=== PATIENT | male | born 1990 ===

== ENCOUNTER 2018-06-16 11:24 | Emergency (ER) | payer OTHER ==
[2018-06-16 11:25] VITALS: BMI 30.7
[2018-06-16 11:44] VITALS: BP 153/83; PULSE 58; RESP 18; TEMP 98.7; O2SAT 99
--- NOTE | 2018-06-16 12:50 | ED PDOC ---
HPI: Male Pain Time Seen by Provider: 06/16/18 12:21 Chief Complaint (Nursing): Male Genitourinary Chief Complaint (Provider): Genital Rash History Per: Patient, [facility] (Chaka OliveiraAntisqueak Chalker #[id number]) History/Exam Limitations: no limitations Onset/Duration Of Symptoms: Days (x3) Current Symptoms Are (Timing): Still Present Additional Complaint(s): 28 year old male presents to the ED for evaluation of a rash to his genitals onset three days ago. When asked patient when the last time he had unprotected sex was, he said, "I don't recall." Otherwise denies fever, chills, and other complaints. PMD: does not have one Past Medical History Reviewed: Historical Data, Nursing Documentation, Vital Signs Vital Signs: Last Vital Signs Temp 98.7 F 06/16/18 11:43 Pulse 58 L 06/16/18 11:43 Resp 18 06/16/18 11:43 BP 153/83 H 06/16/18 11:43 Pulse Ox 99 06/16/18 11:43 - Medical History PMH: No Chronic Diseases - Surgical History Surgical History: No Surg Hx - Family History Family History: States: Unknown Family Hx - Immunization History Hx Tetanus Toxoid Vaccination: No Hx Influenza Vaccination: No Hx Pneumococcal Vaccination: No - Home Medications Home Medications: Ambulatory Orders Medication Instructions Recorded Cephalexin [cephalexin] 500 mg PO QID #28 cap 05/30/18 Ibuprofen [Motrin] 600 mg PO Q6H #20 tab 05/30/18 valACYclovir [Valtrex] 1,000 mg PO BID #20 tab 06/16/18 - Allergies Allergies/Adverse Reactions: Allergies Allergy/AdvReac Type Severity Reaction Status Date / Time No Known Allergies Allergy Verified 05/30/18 18:45 Review of Systems ROS Statement: Except As Marked, All Systems Reviewed And Found Negative Constitutional: Negative for: Fever, Chills Genitourinary Male: Positive for: Rash Physical Exam - Reviewed Nursing Documentation Reviewed: Yes Vital Signs Reviewed: Yes - Physical Exam Appears: Positive for: No Acute Distress Skin: Positive for: Normal Color, Warm Neck: Positive for: Normal, Painless ROM, Supple Cardiovascular/Chest: Positive for: Regular Rate, Rhythm Respiratory: Positive for: Normal Breath Sounds. Negative for: Respiratory Distress Gastrointestinal/Abdominal: Positive for: Normal Exam, Soft. Negative for: Tenderness Male Genital Exam: Positive for: lesions (under foreskin, several erythematous, open lesions noted), other (Uncircumcised genitalia) Neurologic/Psych: Positive for: Alert, Oriented (x3) - ECG O2 Sat by Pulse Oximetry: 99 (RA) Pulse Ox Interpretation: Normal Medical Decision Making Medical Decision Making: Time: 1243 Initial Impression: Herpes simplex virus Initial Plan: --Herpes simplex culture (pending) --Urine culture (pending) --RPR (pending) --Urinalysis (negative with no clinically significant results) --Patient educated on safe sex practices and was provided an opportunity to ask questions. All questions were responded to prior to discharge and sefe sex practice guidelines were provided as part of the patient's discharge package ----- Scribe Attestation: Documented by Yue Patiño, acting as a scribe for Duc Copeland PA-C. Provider Scribe Attestation: All medical record entries made by the Scribe were at my direction and personally dictated by me. I have reviewed the chart and agree that the record accurately reflects my personal performance of the history, physical exam, medical decision making, and the department course for this patient. I have also personally directed, reviewed, and agree with the discharge instructions and disposition. Disposition - Clinical Impression Clinical Impression: Herpes genitalis - Patient ED Disposition Is Patient to be Admitted: No Doctor Will See Patient In The: Office Counseled Patient/Family Regarding: Studies Performed, Diagnosis, Need For Followup, Rx Given - Disposition Referrals: [facility] [Outside] Disposition: Routine/Home Disposition Time: 14:42 Condition: STABLE Additional Instructions: Follow up with the clinics provided below Prescriptions: valACYclovir [Valtrex] 1,000 mg PO BID #20 tab Instructions: Genital Herpes, Condom Options, Genital Herpes (DC), STD Prevention Forms: [employer] (Maltese), [employer] (Greenlandic) Print Language: [place] CITIZEN
[2018-06-16 13:50] LABS: SQUAMOUS EPITHIAL < 1 /hpf (0-5); URINE BACTERIA RARE (<OCC); URINE BILIRUBIN NEGATIVE (NEGATIVE); URINE BLOOD NEGATIVE (NEGATIVE); URINE CLARITY SLIGHTY-CLOUDY (Clear); URINE COLOR YELLOW (YELLOW); URINE GLUCOSE (UA) NEG (NEGATIVE); URINE LEUKOCYTE ESTERASE NEG Leu/uL (Negative); URINE PROTEIN 30 mg/dL (NEGATIVE)
== END 2018-06-16 14:18 | disposition home or self-care (01) ==
LOC: H.ER 11:24
DX: A60.00 Herpesviral infection of urogenital system, unspecified (principal)

== ENCOUNTER 2018-10-16 21:21 | Emergency (ER) | payer OTHER ==
[2018-10-16 21:21] VITALS: BMI 30.7
[2018-10-16 21:33] VITALS: BP 140/70; PULSE 70; RESP 18; TEMP 98.4; O2SAT 100
[2018-10-16] MEDS ORDERED: Tmp-Smz 800 mg-160 mg DS Tab PO STA (22:35)
[2018-10-16] MEDS ORDERED: Lidocaine 1% Inj (20ml) ONE (22:54)
[2018-10-16] MEDS ORDERED: Tmp-Smz 800 mg-160 mg DS Tab ONE (23:16)
--- NOTE | 2018-10-16 23:29 | ED PDOC ---
Upper Extremity Pain/Injury Time Seen by Provider: 10/16/18 22:15 Chief Complaint (Nursing): Upper Extremity Problem/Injury Chief Complaint (Provider): left axilla pain History Per: Patient History/Exam Limitations: no limitations Onset/Duration Of Symptoms: Days Current Symptoms Are (Timing): Still Present Quality: "Pain" Severity: Moderate Pain Scale Rating Of: 6 Additional History Per: Patient Additional Complaint(s): 28 y/o male with no medical history presents to the ED with Boils to left axilla for 4 days. Patient states 4 boils appeared, one which has been increasing growing and worsening. patient states he usually shaves and has never has simialr problem in the past. patient denies fever at home and has not taken medications for symptoms. Past Medical History Reviewed: Historical Data, Nursing Documentation, Vital Signs Vital Signs: Last Vital Signs Temp 98.4 F 10/16/18 21:31 Pulse 70 10/16/18 21:31 Resp 18 10/16/18 21:31 BP 140/70 10/16/18 21:31 Pulse Ox 100 10/16/18 21:31 Primary Care Provider: FAMILY PROVIDER,NO - Medical History PMH: No Chronic Diseases - Surgical History Surgical History: No Surg Hx - Family History Family History: States: Unknown Family Hx - Living Arrangements Living Arrangements: With Family - Immunization History Hx Tetanus Toxoid Vaccination: No Hx Influenza Vaccination: No Hx Pneumococcal Vaccination: No - Home Medications Home Medications: Ambulatory Orders Medication Instructions Recorded Cephalexin [cephalexin] 500 mg PO QID #28 cap 05/30/18 Ibuprofen [Motrin] 600 mg PO Q6H #20 tab 05/30/18 valACYclovir [Valtrex] 1,000 mg PO BID #20 tab 06/16/18 Ibuprofen [Motrin Tab] 800 mg PO Q6H PRN #30 tab 10/16/18 Sulfamethoxazole/Trimethoprim 2 tab PO Q12H #26 tablet 10/16/18 [Bactrim Ds Tablet] - Allergies Allergies/Adverse Reactions: Allergies Allergy/AdvReac Type Severity Reaction Status Date / Time No Known Allergies Allergy Verified 10/16/18 21:33 Review of Systems ROS Statement: Except As Marked, All Systems Reviewed And Found Negative Constitutional: Negative for: Fever, Chills, Weakness Skin: Positive for: Other (boils to left axilla ) Physical Exam - Reviewed Nursing Documentation Reviewed: Yes Vital Signs Reviewed: Yes - Physical Exam Appears: Positive for: Well, Non-toxic, No Acute Distress Head Exam: Positive for: ATRAUMATIC, NORMAL INSPECTION, NORMOCEPHALIC Skin: Positive for: Normal Color, Warm, DRY Eye Exam: Positive for: Normal appearance, PERRL ENT: Positive for: Normal ENT Inspection Neck: Positive for: Normal, Painless ROM, Supple Cardiovascular/Chest: Positive for: Regular Rate, Rhythm Respiratory: Positive for: CNT, Normal Breath Sounds Gastrointestinal/Abdominal: Positive for: Normal Exam, Soft Back: Positive for: Normal Inspection Extremity: Positive for: Normal ROM, Other (4 boils to left axilla, 3 small, dry indurated, non-painful. the most proximal is large with redness to edges, size of half a dollar. fluctant center. and induration to the outer aspect. ) Neurological/Psych: Positive for: Awake, Alert, Normal Tone, Oriented - ECG O2 Sat by Pulse Oximetry: 100 Medical Decision Making Medical Decision Making: I&D Bactrim 2 tbs PO first dose to be given in ED. 23:20 Patient tolerated procedure well. Moderate amount of serosanguinous fluids drained. Rx given for Motrin and Bactrim DS to be continued at home. Patient advised to return in 2-3 days for wound check. patient states understanding and agrees with plan. D/c instructed given in [place] by technical writer Procedures - Time-Out Type of Procedure: 23:10 Site of Procedure: left axilla Correct Patient: Yes PA/Tech: ellie parker np - Incision and Drainage Site: left axilla abscess Blade Size: 11 I & D Procedure: betadine prep, sterile drapes applied, sterile dressing applied - Splinting Progress: packed with 1/4 packing. dressing with telfa, 4x4 and abd pad. Disposition - Clinical Impression Clinical Impression: Cellulitis of axilla, left, Abscess, Folliculitis - Patient ED Disposition Is Patient to be Admitted: No Counseled Patient/Family Regarding: Diagnosis, Need For Followup, Rx Given - Disposition Referrals: [facility] [Outside] Disposition: Routine/Home Disposition Time: 23:20 Condition: GOOD Additional Instructions: Regrese a la musa de Emergencia en 2-3 days. Prescriptions: Ibuprofen [Motrin Tab] 800 mg PO Q6H PRN #30 tab PRN Reason: Pain, Moderate (4-7) Sulfamethoxazole/Trimethoprim [Bactrim Ds Tablet] 2 tab PO Q12H #26 tablet Instructions: Boil, Cellulitis (Skin Infection), Adult (DC) Print Language: CYPRIOT - POA Present On Arrival: None
== END 2018-10-16 23:33 | disposition home or self-care (01) ==
LOC: H.ER 21:21
DX: L03.112 Cellulitis of left axilla (principal); L73.9 Follicular disorder, unspecified

== ENCOUNTER 2018-10-19 11:53 | Emergency (ER) | payer OTHER ==
[2018-10-19 12:07] VITALS: BMI 33.9
[2018-10-19 12:08] VITALS: BP 129/77; PULSE 59; RESP 16; TEMP 98.5; O2SAT 99
--- NOTE | 2018-10-19 12:48 | ED PDOC ---
HPI: Wound Care - HPI Time Seen by Provider: 10/19/18 12:21 Chief Complaint (Nursing): Wound Check Chief Complaint (Provider): Wound check History Per: Patient Exam Limitations: no limitations Location Of Injury: Left: Arm (axilla) Additional History Per: Patient Additional Complaint(s): Patient returns for wound check after an I&D to his left axilla on 10/16/18. Patient reports he has been taking his antibiotics, and denies any fever or chills. He states the pain has improved as well. No additional complaints. Past Medical History Reviewed: Historical Data, Nursing Documentation, Vital Signs Vital Signs: Last Vital Signs Temp 98.5 F 10/19/18 12:07 Pulse 59 L 10/19/18 12:07 Resp 16 10/19/18 12:07 BP 129/77 10/19/18 12:07 Pulse Ox 99 10/19/18 12:07 Primary Care Provider: FAMILY PROVIDER,NO - Medical History PMH: No Chronic Diseases - Surgical History Surgical History: No Surg Hx - Family History Family History: States: Unknown Family Hx - Immunization History Hx Tetanus Toxoid Vaccination: No Hx Influenza Vaccination: No Hx Pneumococcal Vaccination: No - Home Medications Home Medications: Ambulatory Orders Medication Instructions Recorded Cephalexin [cephalexin] 500 mg PO QID #28 cap 05/30/18 Ibuprofen [Motrin] 600 mg PO Q6H #20 tab 05/30/18 valACYclovir [Valtrex] 1,000 mg PO BID #20 tab 06/16/18 Ibuprofen [Motrin Tab] 800 mg PO Q6H PRN #30 tab 10/16/18 Sulfamethoxazole/Trimethoprim 2 tab PO Q12H #26 tablet 10/16/18 [Bactrim Ds Tablet] - Allergies Allergies/Adverse Reactions: Allergies Allergy/AdvReac Type Severity Reaction Status Date / Time No Known Allergies Allergy Verified 10/19/18 12:11 Review of Systems Constitutional: Negative for: Fever, Chills Skin: Positive for: Other (I&D site to left axilla) Physical Exam - Reviewed Nursing Documentation Reviewed: Yes Vital Signs Reviewed: Yes - Physical Exam Appears: Positive for: Non-toxic, No Acute Distress Head Exam: Positive for: NORMAL INSPECTION Skin: Positive for: Normal Color Eye Exam: Positive for: Normal appearance Respiratory: Negative for: Respiratory Distress Extremity: Positive for: Normal ROM, Other (I&D site on left axilla with surrounding induration, no tenderness, erythema or streaking.) Neurological/Psych: Positive for: Awake, Alert - ECG O2 Sat by Pulse Oximetry: 99 (RA) Pulse Ox Interpretation: Normal Medical Decision Making Medical Decision Making: Impression: Wound care Plan: -- Patient informed to finish antibiotics course as prescribed Also informed to apply warm compresses to the site. 1247 Patient stable for discharge home ScribeAttestation: Documented by Ashley Yung, acting as ascribefor NAHED Caldwell ProviderScribeAttestation: All medical record entries made by Chiara at my direction and personally dictated by me. I have reviewed the chart and agree that the record accurately reflects my personal performance of the history, physical exam, medical decision making, and the department course for this patient. I have also personally directed, reviewed, and agree with the discharge instructions and disposition. Disposition - Clinical Impression Clinical Impression: Encounter for wound re-check - Disposition Disposition: Routine/Home Disposition Time: 12:47 Condition: STABLE Additional Instructions: Continue warm compresses. Follow-up with PMD in 1 week. Instructions: Boil (DC) Forms: [employer] [place] (Hungarian) Print Language: UZBEK
== END 2018-10-19 13:25 | disposition home or self-care (01) ==
LOC: H.ER 11:53
DX: Z48.01 Encounter for change or removal of surgical wound dressing (principal)